=== PATIENT | male | born 1960 | race Caucasian/White ===

== ENCOUNTER 2025-01-30 10:55 | Outpatient (OUT) | payer MEDICARE, SELFPAY ==
[2025-01-30 11:32] LABS: Basophils Absolute Auto 0.1 10^3/uL (0.0-0.1); Basophils Percent Auto 1.1 % (0.2-2.0); Eosinophils Absolute Auto 0.2 10^3/uL (0.0-0.7); Hematocrit 48.5 % (42.0-54.0); Hemoglobin 15.8 g/dL (14.0-18.0); Immature Granulocytes Abs Auto 0.02 10^3/uL (0.00-0.03); Immature Granulocytes Pct Auto 0.3 % (0.0-0.5); Lymphocytes Absolute Auto 1.7 10^3/uL (1.2-3.8); Mean Corpuscular HGB Conc 32.6 g/dL (29.9-35.2); Mean Corpuscular Hemoglobin 28.5 pg (25.9-34.0); Mean Corpuscular Volume 87.4 fL (80.0-94.0); Mean Platelet Volume 10.2 fL (9.5-13.5); Monocytes Absolute Auto 0.6 10^3/uL (0.3-0.8); Monocytes Percent Auto 9.6 % (1.7-12.0); Neutrophils Absolute Auto 3.8 10^3/uL (1.4-6.5); Platelet Count 156 10^3/uL (150-450); Red Blood Count 5.55 10^6/uL (4.70-6.10); Red Cell Distribution Width 12.2 % (11.0-15.0); White Blood Count 6.4 10^3/uL (4.0-11.0)
[2025-01-30 12:15] LABS: Alanine Aminotransferase 44 U/L (16-63); Albumin Level 3.8 g/dL (3.4-5.0); Alkaline Phosphatase 146 U/L (46-116); Anion Gap 9.7; Aspartate Amino Transferase 16 U/L (15-37); BUN Creatinine Ratio 13.9; Bilirubin Total 0.5 mg/dL (0.2-1.0); Calcium 9.1 mg/dL (8.5-10.1); Carbon Dioxide 29.8 mmol/L (21.0-32.0); Chloride 99 mmol/L (98-107); Cholesterol 159 mg/dL (<=200); Estimated GFR (African America >60 (>=60 mL/min/1.73m^2); Estimated GFR (Non-African Ame >60 (>=60 mL/min/1.73m^2); Free T3 2.65 pg/mL (2.18-3.98); Globulin 3.9 g/dL; Glucose 319 mg/dL (74-106); HDL Cholesterol 40 mg/dL (40-60); Potassium 4.5 mmol/L (3.5-5.1); Sodium 134 mmol/L (136-145); Thyroid Stimulating Hormone 1.618 uIU/mL (0.358-3.740); Total Protein 7.7 g/dL (6.4-8.2); Triglycerides 480 mg/dL (<=150); Uric Acid 4.4 mg/dL (3.5-7.2)
[2025-01-30 12:16] LABS: Prostate Specific Antigen Scrn 0.26 ng/mL (<=4.00)
[2025-01-30 12:18] LABS: LDL Cholesterol Direct 69 mg/dL
[2025-01-30 12:30] LABS: Estimated Average Glucose 312 mg/dL; Glycohemoglobin A1C 12.5 % (4.5-6.2)
[2025-01-31 06:08] LABS: HCV Antibody Reactive (Non Reactive)
--- OUTSIDE RECORDS SUMMARY | 2025-02-01 18:14 | XMS_ITS ---
Author Organization The [facility] in [place] Address [address] [place] [address] Care Team Providers Care Social Worker Masters Name Role Phone Tony Thompson Primary Care Provider REASON FOR VISIT labs LMTCB Medications Medication SIG (Take, Route, Fr equency, Duration) Notes Start Date End Date Status metFORMIN HCl 500 MG 1 tablet with a matty l Orally bid for 30 days 02/02/2025 Active Encounters Encounter Location Date Provider Diagnosis [facility] [address] [place] [address] 02/01/2025 Tony Thompson Hepatitis C B19.20 Assessments [...] Provider Name:Tony Thompson, 09:45:00 AM, [address] [place], [address], Progress Notes * Curry TINSLEYDOB:1960 (64 yo M)Acc No.[id number]:02/01/2025 Patient: Hayde NANETTECurry :1960 A ge:64 Y S ex:Male Address:[address] [facility] [place] [address] * Refills Start metFORMIN HCl Tablet, 500 [...] Date: Generated for Eden stokes/Chalo/Casimiro on: 0 02/04/2025 02:04 AM EDT
--- OUTSIDE RECORDS SUMMARY | 2025-02-04 02:04 | XMS_ITS | Patient Health Record ---
Author Organization [facility] in [place] Address [address] [place] [address] Care Team Providers Care Cell Technician Name Role Phone JayTony Primary Care Provider Results Component Value Reference Range Notes DIRECT LDL Reviewed date:02/01/2025 10:17:22 PM Interpretation: Performing Lab: Notes/Report: [facility] , LDL Cholesterol Direct 69 <100 mg/dl OPTIMAL 100-129 mg/dl NEAR OR ABOVE OPTIMAL 130-159 mg/dl BORDERLINE HIGH 160-189 mg/dl HIGH >190 mg/dl VERY HIGH Performing Lab: see note ML - [facility] FREE T3 Reviewed date:02/01/2025 10:17:22 PM Interpretation: Performing Lab: Notes/Report: [facility] Free T3 2.65 2.18-3.98 pg/mL Performing Lab: see note ML - [facility] LB GLYCOHEMOGLOBIN A1C Reviewed date:02/01/2025 10:17:22 PM Interpretation: Performing Lab: Notes/Report: [facility] , Glycohemoglobin A1C 12.5 4.5-6.2 % ADA RECOMMENDED LIMIT 4.0 - 6.0 ADA THERAPEUTIC TARGET < 7.0 ACTION SUGGESTED > 7.0 Estimated Average Glucose 312 Performing Lab: see note ML - [facility] LB LIPID PROFILE Reviewed date:02/01/2025 10:17:22 PM Interpretation: Performing Lab: Notes/Report: [facility] , Triglycerides 480 <=150 mg/dL Cholesterol 159 <=200 mg/dL HDL Cholesterol 40 40-60 mg/dL > or =60 mg/dl - LOW CARDIOVASCULAR RISK <40 mg/dl - HIGH CARDIOVASCULAR RISK VLDL CHOLESTEROL 96.0 Chol HDL Ratio 4.0 3.3 - 4.4 LOW RISK 4.4 - 7.1 AVERAGE RISK 7.1 - 11.0 MODERATE RISK >11.0 HIGH RISK Performing Lab: see note [facility] LB PROF 14(COMP METB) Reviewed date:02/01/2025 10:17:22 PM Interpretation: Performing Lab: Notes/Report: [facility] , Sodium 134 136-145 mmol/L Potassium 4.5 3.5-5.1 mmol/L Chloride 99 98-107 mmol/L Carbon Dioxide 29.8 21.0-32.0 mmol/L Anion Gap 9.7 Glucose 319 74-106 mg/dL Blood Urea Nitrogen 14.0 7.0-18.0 mg/dL Creatinine 1.01 0.70-1.30 mg/dL Estimated GFR ( Ailyn >60 >=60 mL/min/1.73m 2 Estimated GFR (Non- Lori >60 >=60 mL/min/1.73m 2 BUN Creatinine Ratio 13.9 Calcium 9.1 8.5-10.1 mg/dL Bilirubin Total 0.5 0.2-1.0 mg/dL Aspartate Amino Transferase 16 15-37 U/L Alanine Aminotransferase 44 16-63 U/L Alkaline Phosphatase 146 46-116 U/L Total Protein 7.7 6.4-8.2 g/dL Albumin Level 3.8 3.4-5.0 g/dL Globulin 3.9 Albumin Globulin Ratio 1.0 Performing Lab: see note ML - [facility] LB PSA SCREENING Reviewed date:02/01/2025 10:17:22 PM Interpretation: Performing Lab: Notes/Report: [facility] , Prostate Specific Antigen Scrn 0.26 <=4.00 ng/mL Performing Lab: see note ML - [facility] LB T4 Reviewed date:02/01/2025 10:17:22 PM Interpretation: Performing Lab: Notes/Report: [facility] , T4 Thyroxine 8.30 4.50-12.10 ug/dL Performing Lab: see note - [facility] LB TSH Reviewed date:02/01/2025 10:17:22 PM Interpretation: Performing Lab: Notes/Report: [facility] , Thyroid Stimulating Hormone 1.618 0.358-3.740 u IU/mL Performing Lab: see note ML - [facility] LB URIC ACID SERUM Reviewed date:02/01/2025 10:17:22 PM Interpretation: Performing Lab: Notes/Report: [facility] , Uric Acid 4.4 3.5-7.2 mg/dL Performing Lab: see note ML - [facility] LB HCV Antibody Reviewed date:02/01/2025 10:17:22 PM Interpretation: Performing Lab: Notes/Report: [facility] , HCV Antibody Reactive Non Reactive HCV antibody alone does not differentiate between previously resolved infection and active infection. Equivocal and Reactive HCV antibody results should be followed up with an HCV RNA test to support the diagnosis of active HCV infection. Performed at: - [facility] [id number] National Sales Executive: Jason Gracia PhD, Phone: [phone] Performing Lab: see note - [facility] LB CBC AUTO DIFF Reviewed date:02/01/2025 10:17:22 PM Interpretation: Performing Lab: Notes/Report: [facility] , White Blood Count 6.4 4.0-11.0 10 3/uL Red Blood Count 5.55 4.70-6.10 10 6/uL Hemoglobin 15.8 14.0-18.0 g/dL Hematocrit 48.5 42.0-54.0 % Mean Corpuscular Volume 87.4 80.0-94.0 fL Mean Corpuscular Hemoglobin 28.5 25.9-34.0 pg Mean Corpuscular HGB Conc 32.6 29.9-35.2 g/dL Red Cell Distribution Width 12.2 11.0-15.0 % Platelet Count 156 150-450 10 3/uL Mean Platelet Volume 10.2 9.5-13.5 fL Neutrophils Percent Auto 59.0 43.0-75.0 % Lymphocytes Percent Auto 27.0 20.5-60.0 % Monocytes Percent Auto 9.6 1.7-12.0 % Eosinophils Percent Auto 3.0 0.9-7.0 % Basophils Percent Auto 1.1 0.2-2.0 % Immature Granulocytes Pct Auto 0.3 0.0-0.5 % Neutrophils Absolute Auto 3.8 1.4-6.5 10 3/uL Lymphocytes Absolute Auto 1.7 1.2-3.8 10 3/uL Monocytes Absolute Auto 0.6 0.3-0.8 10 3/uL Eosinophils Absolute Auto 0.2 0.0-0.7 10 3/uL Basophils Absolute Auto 0.1 0.0-0.1 10 3/uL Immature Granulocytes Abs Auto 0.02 0.00-0.03 10 3/uL Performing Lab: see note ML - [facility] LB Reason For Referral No Information Medications Medication SIG (Take, Route, Frequency, Duration) Notes Start Date End Date Status Triamcinolone Acetonide 0.1 % 1 application Externally bid 01/30/2025 Active metFORMIN HCl 500 MG 1 tablet with a matty l Orally bid for 30 days 02/02/2025 Active Social History Tobacco Use: Social History [...] W/U Status Risk Notes Problem Hepatitis C (38262825) Hepatitis C (B19.20) Active confirmed Problem Varicose vein (50032023) Varicose vein (I86.8) Active confirmed Problem Diverticular disease of colon (568039046) Diverticula of colon (K57.30) Active confirmed Problem Impotence (N52.9) Active confirmed Problem Type II diabetes mellitus without complication (535268153) Controlled type 2 diabetes mellitus (E11.9) Active confirmed Vital Signs Blood pressure diastolic 96 mm Hg 01/30/2025 Height 66 in 01/30/2025 Blood pressure systolic 164 mm Hg 01/30/2025 Weight 204.8 lbs 01/30/2025 BMI 33.05 kg/m2 01/30/2025 Encounters Encounter Location Date Provider Diagnosis [facility] [address] [place] [address] 01/30/2025 Tony Roniy Hepatitis C B19.20 ; Impotence N52.9 ; Controlled type 2 diabetes mellitus E11.9 and Smoker F17.200 [facility] [address] [place] [address] 02/01/2025 Tony Thompson Hepatitis C B19.20 Assessments Encounter Date Diagnosis (ICD Code) Assessment Notes Treatment Notes Treatment Clinical Notes Section Notes 01/30/2025 Hepatitis C (ICD-10 - B19.20) 01/30/2025 Impotence (ICD-10 - N52.9) 02/01/2025 Hepatitis C (ICD-10 - B19.20) 01/30/2025 Controlled type 2 diabetes mellitus (ICD-10 - E11.9) 01/30/2025 Smoker (ICD-10 - F17.200) Plan Of Treatment Pending Test Test Name Order Date HEMOGLOBIN A1C (GLYCO) 01/30/2025 LIPID PANEL (CHOL/TRIG/HDL/LDL) 01/31/20 URIC ACID 01/30/2025 STOOL OCCULT BLOOD 01/30/2025 HEP C RNA BY PCR QUANT (NON-GRAPHICAL) W 02/01/2025 HEPATITIS C ANTIBODY 01/30/2025 THYROID PANEL (T4/TSH/FREE T3) PSA, SCREENING 01/30/2025 CT CHEST LOW DOSE (LDCT) 01/30/2025 CMP (COMP MET SERRANO) w/eGFR CKD-EPI 2024 CBC WITH DIFF 01/30/2025 Next Appt Details Provider Name:Tony Thompson, 09:45:00 AM, [address] [place], [address], Insurance Providers Payer Name Payer Address Payer Phone Subscriber Number Group Number Insured Name Patient Relationship to Insured Coverage Start Date Coverage End Date [place] [address] [place] [address] [id number] Curry Tinsley Self - patient is the insured Medical (General) History Medical History History ICD Code Hepatitis C B19.20 Diverticula of colon K57.30 Impotence N52.9 Varicose vein I86.8 Shingles B02.9 Controlled type 2 diabetes mellitus E11. 9 Surgical History Surgery Date(Month/Year) colonoscopy 03/2014
== END 2025-01-30 10:56 | disposition home or self-care (01) ==
PROVIDERS: PCP Family Medicine; Visit Provider Family Medicine
DX: E78.5 Hyperlipidemia, unspecified (principal); B19.20 Unspecified viral hepatitis C without hepatic coma; N52.9 Male erectile dysfunction, unspecified; E11.9 Type 2 diabetes mellitus without complications; Z12.12 Encounter for screening for malignant neoplasm of rectum; Z12.5 Encounter for screening for malignant neoplasm of prostate
CPT/HCPCS: 80053; 80061; 83036; 83721; 84436; 84443; 84481; 84550; 85025; 86803; G0103

== ENCOUNTER 2025-02-04 10:26 | Outpatient (REF) | payer OTHER, SELFPAY ==
--- OUTSIDE RECORDS SUMMARY | 2025-01-30 06:00 | XMS_ITS ---
Author Organization The [facility] in [place] Address [address] [place] [address] Care Team Providers Care Tractor Operator Name Role Phone Tony Thompson Primary Care Provider REASON FOR VISIT Presents to office with daughter for yearly wellness exam, c/o dry skin to face, has history of hepC. Daughter concerned because of discoloration to skin and abd girth Medications Medication SIG (Take, Route, Frequency, Duration) Notes Start Date End Date Status Triamcinolone Acetonide 0.1 % 1 application Externally bid 01/30/2025 Active Social History Tobacco Use: Social History Observation Description Date Details (start date - stop date) Former Smoker 01/16/1972 - 01/15/2023 Tobacco Control (Standard) Question Answer Notes Tobacco use: Former smoker When did you start smoking? 01/16/1972 When did you stop smoking? 01/15/2023 AUDIT-C (Standard) Question Answer Notes Did you have a drink containing alcohol in the p ast year? No Points 0 Interpretation Negative Problems Problem Type SNOMED Code ICD Code Onset Dates Problem Status W/U Status Risk Notes Problem Hepatitis C (67119952) Hepatitis C (B19.20) Active confirmed Problem Diverticular disease of colon (884603262) Diverticula of colon (K57.30) Active confirmed Problem Impotence (N52.9) Active confirmed Problem Varicose vein (35142277) Varicose vein (I86.8) Active confirmed Problem Type II diabetes mellitus without complication (084256625) Controlled type 2 diabetes mellitus (E11.9) Active confirmed Vital Signs Blood pressure systolic 164 mm Hg 01/31/20 25 Blood pressure diastolic 96 mm Hg 025 Height 66 in 01/30/2025 Weight 204.8 lbs 01/30/2025 BMI 33.05 kg/m2 01/30/2025 Encounters Encounter Location Date Provider Diagnosis [facility] [address] [place] [address] 01/30/2025 Tony Thompson Hepatitis C B19.20 ; Impotence N52.9 ; Controlled type 2 diabetes mellitus E11.9 and Smoker F17.200 Assessments Encounter Date Diagnosis (ICD Code) Assessment Notes Treatment Notes Treatment Clinical Notes Section Notes 01/30/2025 Hepatitis C (ICD-10 - B19.20) 01/30/2025 Impotence (ICD-10 - N52.9) 01/30/2025 Controlled type 2 diabetes mellitus (ICD-10 - E11.9) 01/30/2025 Smoker (ICD-10 - F17.200) Plan Of Treatment Medication Medication Name Sig Start Date Stop Date Notes Triamcinolone Acetonide 0.1 % 1 application Externally bid 01/30/2025 Pending Test Test Name Order Date HEMOGLOBIN A1C (GLYCO) 01/30/2025 LIPID PANEL (CHOL/TRIG/HDL/LDL) 01/31/20 25 URIC ACID 01/30/2025 STOOL OCCULT BLOOD 01/30/2025 HEPATITIS C ANTIBODY 01/30/2025 THYROID PANEL (T4/TSH/FREE T3) 5 PSA, SCREENING 01/30/2025 CT CHEST LOW DOSE (LDCT) 01/30/2025 CMP (COMP MET SERRANO) w/eGFR CKD-EPI 2024 CBC WITH DIFF 01/30/2025 Next Appt Details Provider Name:Tony Thompson, 09:45:00 AM, [address] [place], [address], Progress Notes * Curry TINSLEYDOB:1960 (64 yo M)Acc No.[id number]:01/30/2025 Progress Note Patient: Hayde FITZPATRICK Curry Pichardo Provider: Basilio Thompson ([facility])MD :1960 A ge:64 Y S ex:Male Date:01/30/2025 Address:[address], [place], [id number] Check In:09:49 AM ESTCheck O ut:10:39 AM EST Subjective: * Chief Complaints: * P resents to office with daughter for yearly wellness examC/o dry skin to facehas history of hep C. Daughter concerned because of discoloration to skin and abd girth * HPI: D epression Screening: PHQ-9 L ittle interest or pleasure in doing things?More than half the days F eeling down, depressed, or hopeless S everal T rouble falling or staying asleep, or sleeping too much M ore than half the days F eeling tired or having little energy N early every day P oor appetite or overeating M ore than half the days F eeling bad about yourself or that you are a failure, or have let yourself or your family down N ot at all T rouble concentrating on things, such as reading the newspaper or watching television S ever M oving or speaking so slowly that other people could have noticed; or the opposite, being so fidgety or restless that you have been moving around a lot more than usual N ot at all T houghts that you would be better off or of hurting yourself in some way N ot at all T otal Score 1 1 I nterpretation M oderate Depression Umical hernoa - no symtpmsd weight alvarez been going up needs routine lasb. * ROS: E ENT: hearing changes d enies. v isual changes d enies.?non-healing mouth sores d enies. s wollen glands or neck lumps d enies. h oarseness d enies. s ore throat d enies. d ifficulty swallowing d enies. n ose bleeds d enies. n carlos congestion d enies. e ar ache d enies. e ar discharge?denies. r inging in ears d enies. l ight sensitivity d enies. e ye pain d enies. b lurring d enies. e ye irritation d enies. d ouble vision d enies.?vision loss d enies. G eneral/Constitutional: Sweats: D enies. F atigue d enies. S leep problems d enies. A norexia d enies. M alaise d enies. W eight loss d enies.?Fatigue or Weakness d enies. F ever or Chills d enies. C ardiovascular: Shortness of Breath w/lying flat d enies. L ightheadedness/dizziness d enies. C hest tightness/ heavy pressure d enies. S welling of legs, ankles, or feet d enies. W aking up with shortness of breath d enies. C hest pain denies. P alpitations d enies. W eight gain d enies. R espiratory: Chronic or frequent cough d enies. C oughing up blood?denies. D ifficulty breathing d enies. P roductive cough d enies. S noring?denies. S hortness of breath that awakens from sleep (PND) d enies. C hest pain d enies. S putum production d enies. W heezing d enies. M usculoskeletal: Joint pain d enies. J oint Fluid d enies. B ack pain d enies. K nee pain d enies. N la nena pain d enies. J oint Stiffness d enies. M uscle cramps d enies. W eakness of muscles d enies. A rthritis d enies. M uscle aches d enies. P ain in shoulder(s) d enies. S wollen joints d enies. * Active Problem List B19.20 Hepatitis C Modified On:01/30/2025U Status:confirmed I86.8 Varicose vein Modified On:01/30/2025U Status:confirmed K57.30 Diverticula of colon Modified On:01/30/2025U Status:confirmed N52.9 Impotence Modified On:01/30/2025U Status:confirmed E11.9 Controlled type 2 di abetes mellitus Modified On:01/30/2025U Status:confirmed * Medical History: * Surgical History: c olonoscopy 03/2014 * Hospitalization/Major Diagno stic Procedure: * Family History: F ather: . M other: . * Social History: T obacco Use: T obacco Control (Standard) T obacco use: F ormer smoker W hen did you start smoking? 0 01/16/1972 W hen did you stop smoking? 0 01/15/2023 D rug/Alcohol: A TYSON-C (Standard) D id you have a drink containing alcohol in the past year? N o P oints 0 I nterpretation N egative * Medications: D iscontinuedAmoxicillin-Pot Clavulanate 875-125 MG Tablet 1 tablet Orally every 12 hrs Medication List reviewed and reconciled with the patientDiscontinued Amoxicillin-Pot Clavulanate 875-125 MG Tablet 1 tablet Orally every 12 hrs Medication List reviewed and reconciled with the patient Objective: * Vitals: W t:204.8lbs, Ht: 66 in, BP:164/96mm Hg, BMI:33.05Index, Ht-cm: 167.64 cm, Wt-k.9 kg. * Examination: P hysical Exam: GENERAL: w ell developed, well nourished, in no acute distress. HEAD: n ormocephalic/atraumatic. EYES: p upils equal, round and reactive to light, conjunctivae and sclerae normal. EARS: n o deformity or lesion of external ear, canals and TM appear normal bilaterally, TM's intact, not inflamed with normal light reflex, hearing grossly normal to conversational speech. NOSE: n o deformity, discharge, inflammation, or lesions.? MOUTH: m ucous membranes moist, normal oropharynx and posterior pharynx without lesions or exudates, tongue normal, dentition normal. NECK: n la nena supple, no masses or palpable cervical nodes, trachea midline, thyroid without nodules, masses, tenderness, or enlargement. CHEST: n o chest wall deformity, no chest wall tenderness.? LUNGS: n ormal respiratory effort and clear to auscultation, no wheezes, rales, or rhonchi, good air exchange. CARDIO: r egular rate and rhythm, normal S1 and S2, nor murmur, rub, or gallop. PULSES: n ormal capillary refill. ABDOMEN: s oft, non-distended, non-tender, no masses. MUSCULOSKELETAL: n o deformity or scoliosis noted, normal range of motion, joints normal, no erythema, edema, effusion, or ecchymosis. EXTREMITY: n o clubbing, cyanosis, edema, or deformity with normal ROM in both upper and lower bilateral extremities. NEUROLOGIC: g rossly normal. SKIN: n o rashes, ulcerations, or suspicious lesions. LYMPH NODES: n o cervical adenopathy, nodes normal. MENTAL STATUS: a lert and oriented x3, normal mood and affect. Assessment: * Assessment: 1. H epatitis C - B19.20 (Primary) 2 . I mpotence - N52.9 3 . C ontrolled type 2 diabetes mellitus - E11.9 4 . S moker - F17.200 ? Plan: * Treatment: 2. I mpotence L AB: HEMOGLOBIN A1C (GLYCO) L AB: LIPID PANEL (CHOL/TRIG/HDL/LDL) L AB: URIC ACID L AB: STOOL OCCULT BLOOD L AB: THYROID PANEL (T4/TSH/FREE T3) L AB: PSA, SCREENING L AB: CMP (COMP MET SERRANO) w/eGFR CKD-EPI L AB: CBC WITH DIFF 3. C ontrolled type 2 diabetes mellitus L AB: HEMOGLOBIN A1C (GLYCO) L AB: LIPID PANEL (CHOL/TRIG/HDL/LDL) L AB: URIC ACID L AB: STOOL OCCULT BLOOD L AB: THYROID PANEL (T4/TSH/FREE T3) L AB: PSA, SCREENING L AB: CMP (COMP MET SERRANO) w/eGFR CKD-EPI L AB: CBC WITH DIFF 4. S moker I maging: CT CHEST LOW DOSE (LDCT) * Procedure Codes: * Preventive Medicine: Screenings/Counseling: B IA ACTION PLAN Above Normal BMI Follow-up D ietary management education, guidance, and counseling See treatment section of progress note for complete details of management plan. F ALL RISK SCREENING Fall Risk Assessment: N o falls in the past year * * Sign off status: Completed Visit Status: Akin HK (Check Out) true * Provider: Basilio Thompson ([facility])MD Date: 0 01/30/2025 Generated for Printi ng/Fayasmineg/eTransmitting on: 0 02/04/2025 10:32 AM EDT History and Physical Notes * HPI (History of Present Illness) Category Sub-Category Detail Notes Category Not es Depression Screening PHQ-9 Little inte rest or pleasure in doing things: More than half the days Umical hernoa - no symtpmsd weight alvarez been going up needs routine lasb Feeling down, depressed, or hopeless: Se veral days Trouble falling or staying a sleep, or sleeping too much: More than half the days Feeling tired or having little energy: N early every day Poor appetite or overeating: More than h intermediate the days Feeling bad about yourself o r that you are a failure, or have let yourself or your family down: Not at all Trouble concentrating on thi ngs, such as reading the newspaper or watching television: Several days Moving or speaking so slowly that other people could have noticed; or the opposite, being so fidgety or restless that you have been moving around a lot more than usual: Not at all Thoughts that you would be b catar[place] off or of hurting yourself in some way: Not at all Total Score: 11 Interpretation: Moderate Depression Examination Category Sub-Category Detail Notes Category Not es Physical Exam GENERAL: well developed, well nourished, in no acute distress HEAD: normocephalic/atraum atic EYES: pupils equal, round and reactive to light, conjunctivae and sclerae normal EARS: no deformity or lesi on of external ear, canals and TM appear normal bilaterally, TM's intact, not inflamed with normal light reflex, hearing grossly normal to conversational speech NOSE: no deformity, discha rge, inflammation, or lesions MOUTH: mucous membranes mariah st, normal oropharynx and posterior pharynx without lesions or exudates, tongue normal, dentition normal NECK: neck supple, no mass es or palpable cervical nodes, trachea midline, thyroid without nodules, masses, tenderness, or enlargement CHEST: no chest wall deform ity, no chest wall tenderness LUNGS: normal respiratory e ffort and clear to auscultation, no wheezes, rales, or rhonchi, good air exchange CARDIO: regular rate and rhy thm, normal S1 and S2, nor murmur, rub, or gallop PULSES: normal capillary ref ill ABDOMEN: soft, non-distended, non-tender, no masses RECTAL: MUSCULOSKELETAL: no deformity or scol iosis noted, normal range of motion, joints normal, no erythema, edema, effusion, or ecchymosis EXTREMITY: no clubbing, cyanosi s, edema, or deformity with normal ROM in both upper and lower bilateral extremities NEUROLOGIC: grossly normal SKIN: no rashes, ulceratio ns, or suspicious lesions LYMPH NODES: no cervical adenopat hy, nodes normal MENTAL STATUS: alert and oriented x 3, normal mood and affect
[2025-02-04 10:45] LABS: Internal Control Within Normal Limits; Occult Blood Negative
== END 2025-02-04 10:27 | disposition home or self-care (01) ==
LOC: LAB 10:26
PROVIDERS: PCP Family Medicine; Visit Provider Family Medicine
DX: E78.5 Hyperlipidemia, unspecified (principal); B19.20 Unspecified viral hepatitis C without hepatic coma; N52.9 Male erectile dysfunction, unspecified; E11.9 Type 2 diabetes mellitus without complications; Z12.12 Encounter for screening for malignant neoplasm of rectum; Z12.5 Encounter for screening for malignant neoplasm of prostate
CPT/HCPCS: G0328

== ENCOUNTER 2025-02-19 09:10 | Outpatient (OUT) | payer OTHER, SELFPAY ==
--- OUTSIDE RECORDS SUMMARY | 2025-02-01 18:14 | XMS_ITS ---
Author Organization [facility] in [place] Address [address] [place] [address] Care Team Providers Care Seed Pelleter Name Role Phone Tony Thopmson Primary Care Provider [phone] REASON FOR VISIT labs LMTCB Medications Medication SIG (Take, Route, Fr equency, Duration) Notes Start Date End Date Status metFORMIN HCl 500 MG 1 tablet with a matty l Orally bid for 30 days 02/02/2025 Active Encounters Encounter Location Date Provider Diagnosis [facility] [address] [place] [address] 02/01/2025 Tony Thompson Hepatitis C B19.20 Assessments Encounter Date Diagnosis (ICD Code) Assessment Notes Treatment Notes Treatment Clinical Notes Section Notes 02/01/2025 Hepatitis C (ICD-10 - B19.20) Plan Of Treatment Medication Medication Name Sig Start Date Stop Date Notes metFORMIN HCl 500 MG 1 tablet with a matty l Orally bid for 30 days 02/02/2025 Pending Test Test Name Order Date HEP C RNA BY PCR QUANT (NON-GRAPHICAL) W 02/01/2025 Next Appt Details Provider Name:Tony Thompson, 09:45:00 AM, [address] [place], [address], Progress Notes * Curry TINSLEYDOB:1960 (64 yo M)Acc No.[id number]:02/01/2025 Patient: Hayde NANETTECurry :1960 A ge:64 Y S ex:Male Address:[address] [place] [address] * Refills Start metFORMIN HCl Tablet, 500 MG, Orally, 60 Tablet, 1 tablet with a meal, bid, 30 days, Refills=11 Subjective: * Chief Complaints: * l abs LMTCB * Medical History: * Surgical History: * Hospitalization/Major Diagno stic Procedure: * Medications: Objective: * Vitals: * Physical Examination: Assessment: * Assessment: 1. H epatitis C - B19.20 (Primary) Plan: * Treatment: 2. O thers Start metFORMIN HCl Tablet, 500 MG, 1 tablet with a meal, Orally, bid, 30 days, 60 Tablet, Refills 11. * Procedure Codes: * true * Date: Generated for Eden stokes/Chalo/Casimiro on: 0 02/19/2025 09:20 AM EDT
--- OUTSIDE RECORDS SUMMARY | 2025-02-19 09:21 | XMS_ITS | Patient Health Record ---
Author Organization The [facility] in [place] Address [address] [place] [address] Care Team Providers Care Supervisor Winding Department Name Role Phone JayTony Primary Care Provider Results Component Value Reference Range Notes DIRECT LDL Reviewed date:02/01/2025 10:17:22 PM Interpretation: Performing Lab: Notes/Report: [facility] , LDL Cholesterol Direct 69 <100 mg/dl OPTIMAL 100-129 mg/dl NEAR OR ABOVE OPTIMAL 130-159 mg/dl BORDERLINE HIGH 160-189 mg/dl HIGH >190 mg/dl VERY HIGH Performing Lab: see note ML - [facility] FREE T3 Reviewed date:02/01/2025 10:17:22 PM Interpretation: Performing Lab: Notes/Report: [facility] , Free T3 2.65 2.18-3.98 pg/mL Performing Lab: see note ML - [facility] LB T4 Reviewed date:02/01/2025 10:17:22 PM Interpretation: Performing Lab: Notes/Report: [facility] , T4 Thyroxine 8.30 4.50-12.10 ug/dL Performing Lab: see note ML - [facility] LB TSH Reviewed date:02/01/2025 10:17:22 PM Interpretation: Performing Lab: Notes/Report: [facility] , Thyroid Stimulating Hormone 1.618 0.358-3.740 u IU/mL Performing Lab: see note ML - [facility] LB HCV Antibody Reviewed date:02/01/2025 10:17:22 PM Interpretation: Performing Lab: Notes/Report: [facility] , HCV Antibody Reactive Non Reactive HCV antibody alone does not differentiate between previously resolved infection and active infection. Equivocal and Reactive HCV antibody results should be followed up with an HCV RNA test to support the diagnosis of active HCV infection. Performed at: - [facility] [address] [id number] Insurance Underwriter: Jason Gracia PhD, Phone: [phone] Performing Lab: see note - [facility] LB Occult Blood* Reviewed date:02/04/2025 12:55:08 PM Interpretation: Performing Lab: Notes/Report: [facility] , Occult Blood Negative Performing Lab: see note ML - [facility] LB URIC ACID SERUM Reviewed date:02/01/2025 10:17:22 PM Interpretation: Performing Lab: Notes/Report: [facility] , Uric Acid 4.4 3.5-7.2 mg/dL Performing Lab: see note ML - [facility] LB PSA SCREENING Reviewed date:02/01/2025 10:17:22 PM Interpretation: Performing Lab: Notes/Report: [facility] , Prostate Specific Antigen Scrn 0.26 <=4.00 ng/mL Performing Lab: see note - [facility] LB PROF 14(COMP METB) Reviewed date:02/01/2025 10:17:22 PM Interpretation: Performing Lab: Notes/Report: [facility] , Sodium 134 136-145 mmol/L Potassium [...] 1.0 Performing Lab: see note ML - [facility] LB LIPID PROFILE Reviewed date:02/01/2025 10:17:22 PM Interpretation: Performing Lab: Notes/Report: [facility] , Triglycerides 480 <=150 mg/dL Cholesterol 159 <=200 mg/dL HDL Cholesterol 40 40-60 mg/dL > or =60 mg/dl - LOW CARDIOVASCULAR RISK <40 mg/dl - HIGH CARDIOVASCULAR RISK VLDL CHOLESTEROL 96.0 Chol HDL Ratio 4.0 3.3 - 4.4 LOW RISK 4.4 - 7.1 AVERAGE RISK 7.1 - 11.0 MODERATE RISK >11.0 HIGH RISK Performing Lab: see note ML - [facility] LB GLYCOHEMOGLOBIN A1C Reviewed date:02/01/2025 10:17:22 PM Interpretation: Performing Lab: Notes/Report: [facility] , Glycohemoglobin A1C 12.5 4.5-6.2 % ADA RECOMMENDED LIMIT 4.0 - 6.0 ADA THERAPEUTIC TARGET < 7.0 ACTION SUGGESTED > 7.0 Estimated Average Glucose 312 Performing Lab: see note ML - [facility] LB CBC AUTO DIFF Reviewed date:02/01/2025 10:17:22 PM Interpretation: Performing Lab: Notes/Report: [facility] , White Blood Count 6.4 4.0-11.0 [...] 3/uL Performing Lab: see note ML - [facility] LB Reason For Referral No Information [...] W/U Status Risk Notes Problem Hepatitis C (65349849) Hepatitis C (B19.20) Active confirmed Problem Varicose vein (18431931) Varicose vein (I86.8) Active confirmed Problem Diverticular disease of colon (768486989) Diverticula of colon (K57.30) Active confirmed Problem Impotence (N52.9) Active confirmed Problem Type II diabetes mellitus without complication (985577391) Controlled type 2 diabetes mellitus (E11.9) Active confirmed Vital Signs Blood pressure diastolic 96 mm Hg 01/30/2025 Height 66 in 01/30/2025 Blood pressure systolic 164 mm Hg 01/30/2025 Weight 204.8 lbs 01/30/2025 BMI 33.05 kg/m2 01/30/2025 Encounters Encounter Location Date Provider Diagnosis [facility] [address] [id number] 02/01/2025 Tony Thompson Hepatitis C B19.20 [facility] [address] [place] [address] 01/30/2025 Tony Thompson Hepatitis C B19.20 ; [...] Provider Name:Tony Thompson, 09:45:00 AM, [address] [place], [address], Insurance Providers Payer Name Payer Address Payer Phone Subscriber Number Group Number Insured Name Patient Relationship to Insured Coverage Start Date Coverage End Date MEDIC[place] [address] [place] [place] [address] [id number] Curry Tinsley Self - patient is the insured Medical (General) History Medical History History ICD Code Hepatitis C B19.20 Diverticula of colon K57.30 Impotence N52.9 Varicose vein I86.8 Shingles B02.9 Controlled type 2 diabetes mellitus E11. 9 Surgical History Surgery Date(Month/Year) colonoscopy 03/2014
--- NOTE | 2025-02-19 09:35 | CT_ITS ---
The [address] [address] Patient Name: SAVANNAH CAPPS MRN: [id number] date: 1960 Sex: M Assigned Patient Location: CT Current Patient Location: CT Accession/Order Number: [id number] Exam Date: 02/19/2025 10:34 Report Date: 02/19/2025 10:39 At the request of: MELINDA DAMON MD Procedure: CT lung screening low-dose LOW-DOSE SCREENING CHEST CT WITHOUT CONTRAST COMPARISON: None CLINICAL DATA: Former smoker for approximately 50 years. Spiral axial unenhanced low-dose images were obtained through the chest. Images were reviewed using both narrow and wide window settings. This CT exam was performed using one or more following dose reduction techniques: Automated exposure control, adjustment of the mA and/or kV according to patient size, or use of iterative reconstruction technique. The heart is top normal in size. There is no pericardial effusion. No aortic aneurysm is seen. There is mild atelectatic plaque at the aortic arch and proximal great vessels. There are a few small nonpathologic mediastinal lymph nodes. There is minor endplate spurring at the spine. There are airspace lucencies compatible with obstructive lung disease. There is minor basilar atelectasis and/or scarring. There is no additional consolidation, pleural effusion or pneumothorax. No pulmonary nodularity is noted. Limited imaging through the upper abdomen shows fatty infiltration of the liver. There are hepatic and splenic granulomas. CT/CT lung screening low-dose IMPRESSION: OBSTRUCTIVE LUNG DISEASE WITH MINOR ATELECTASIS AND/OR SCARRING. NO PULMONARY NODULARITY. Lung RADS category 1 - negative Twelve-month low-dose CT follow-up suggested Impression dictated by: Emily Owen M.D. 02/19/2025 10:39 AM Dictation Location: [place] [address] Electronically authenticated by: [id number] Y Date: 02/19/2025 10:39
== END 2025-02-19 09:11 | disposition home or self-care (01) ==
PROVIDERS: PCP Family Medicine; Visit Provider Family Medicine
DX: J44.9 Chronic obstructive pulmonary disease, unspecified (principal); F17.210 Nicotine dependence, cigarettes, uncomplicated
CPT/HCPCS: 71271

== ENCOUNTER 2025-08-10 07:25 | Outpatient (OUT) | payer OTHER, SELFPAY ==
--- OUTSIDE RECORDS SUMMARY | 2025-07-27 06:09 | XMS_ITS ---
Author Organization The [facility] in [place] Address [address] [place] [address] Care Team Providers Care Calciner Feeder Name Role Phone Jay Tony Primary Care Provider [phone] REASON FOR VISIT repeat labs? Encounters Encounter Location Date Provider Diagnosis [facility] [address] [place] [address] 07/27/2025 Tony Thompson Controlled type 2 diabetes mellitus E11.9 Assessments Encounter Date Diagnosis (ICD Code) Assessment Notes Treatment Notes Treatment Clinical Notes Section Notes 07/27/2025 Controlled type 2 diabetes gumaro chanel (ICD-10 - E11.9) Plan Of Treatment Pending Test Test Name Order Date TOTAL URINE, PROTEIN 07/27/2025 GLYCOHEMOGLOBIN A1C 07/27/2025 Progress Notes * Curry TINSLEYDOB:1960 (64 yo M)Acc No.[id number]:07/27/2025 Patient:?JEFRY, Curry Pichardo :1960???Age:64 Y???Sex:MalePhone:[phone] Address:[address] [place] [address], [address] Subjective: * Chief Complaints: * R epeat labs? * Medical History: * Surgical History: * Hospitalization/Major Diagno stic Procedure: * Medications: Objective: * Vitals: * Physical Examination: ??? Assessment: * Assessment: 1.?Controlled type 2 diabetes mellitus - E11.9 (Primary)??? Plan: * Treatment: ?LAB: TOTAL URINE, PROTEIN ?LAB: GLYCOHEMOGLOBIN A1C * Procedure Codes: * true * Date:?Generated for Printing/Faxing/eTransmitting on:?08/10/2025 07:29 AM EST
--- OUTSIDE RECORDS SUMMARY | 2025-08-10 07:29 | XMS_ITS | Patient Health Record ---
Author Organization The [facility] in [place] Address [address] [place] [address] Care Team Providers Care Solar Sales Representative Name Role Phone JayTony Primary Care Provider Allergies No Known Allergies Results Component Value Reference Range Notes Occult Blood* Reviewed date:02/04/2025 12:55:08 PM Interpretation: Performing Lab: Notes/Report: [facility] , Occult Blood Negative Performing Lab:see noteML - [facility] LBTSH Reviewed date:02/01/2025 10:17:22 PM Interpretation: Performing Lab: Notes/Report: [facility] ,Thyroid Stimulating Hormone1.6180.358-3.740 uIU/mLPerforming Lab:see note - [facility] LBT4 Reviewed date:02/01/2025 10:17:22 PM Interpretation: Performing Lab: Notes/Report: [facility] ,T4 Thyroxine8.304.50-12.10 ug/dLPerforming Lab:see note - [facility] LBGLYCOHEMOGLOBIN A1C Reviewed date:02/01/2025 10:17:22 PM Interpretation: Performing Lab: Notes/Report: [facility] ,Glycohemoglobin A1C12.54.5-6.2 % ADA RECOMMENDED LIMIT 4.0 - 6.0 ADA THERAPEUTIC TARGET < 7.0 ACTION SUGGESTED > 7.0 Estimated Average Yukowvl329Cokufroexs Lab:see noteML - [facility] LB FREE T3 Reviewed date:02/01/2025 10:17:22 PM Interpretation: Performing Lab: Notes/Report: [facility] ,Free T32.652.18-3.98 pg/mLPerforming Lab:see noteML - [facility] LB DIRECT LDL Reviewed date:02/01/2025 10:17:22 PM Interpretation: Performing Lab: Notes/Report: [facility] ,LDL Cholesterol Ouoonb74 <100 mg/dl OPTIMAL 100-129 mg/dl NEAR OR ABOVE OPTIMAL 130-159 mg/dl BORDERLINE HIGH 160-189 mg/dl HIGH >190 mg/dl VERY HIGH Performing Lab:see noteML - [facility] LBCBC AUTO DIFF Reviewed date:02/01/2025 10:17:22 PM Interpretation: Performing Lab: Notes/Report: [facility] ,White Blood Count6.44.0-11.0 10 3/uLRed Blood Count5.554.70-6.10 10 6/uL Mrkdqusomd32.814.0-18.0 g/jMVqgydgpfbh05.542.0-54.0 %Mean Corpuscular Jbjxpn44.4 80.0-94.0 fLMean Corpuscular Kzjnqcrysf75.525.9-34.0 pgMean Corpuscular HGB Conc 32.629.9-35.2 g/dLRed Cell Distribution Width12.211.0-15.0 %Platelet Hqsvx197 150-450 10 3/uLMean Platelet Dwbgur53.29.5-13.5 fLNeutrophils Percent Auto59.0 43.0-75.0 %Lymphocytes Percent Auto27.020.5-60.0 %Monocytes Percent Auto9.61.7- 12.0 %Eosinophils Percent Auto3.00.9-7.0 %Basophils Percent Auto1.10.2-2.0 % Immature Granulocytes Pct Auto0.30.0-0.5 %Neutrophils Absolute Auto3.81.4-6.5 10 3/uLLymphocytes Absolute Auto1.71.2-3.8 10 3/uLMonocytes Absolute Auto0.60.3-0.8 10 3/uLEosinophils Absolute Auto0.20.0-0.7 10 3/uLBasophils Absolute Auto0.10.0- 0.1 10 3/uLImmature Granulocytes Abs Auto0.020.00-0.03 10 3/uLPerforming Lab:see noteML - [facility] LBHCV Antibody Reviewed date:02/01/2025 10:17:22 PM Interpretation: Performing Lab: Notes/Report: [facility] ,HCV AntibodyReactiveNon Reactive HCV antibody alone does not differentiate between previously resolved infection and active infection. Equivocal and Reactive HCV antibody results should be followed up with an HCV RNA test to support the diagnosis of active HCV infection. Performed at: [address] [id number] Thread Trimmer: Jason Gracia PhD, Phone: [phone] Performing Lab:see noteLC - [facility] LBURIC ACID SERUM Reviewed date:02/01/2025 10:17:22 PM Interpretation: Performing Lab: Notes/Report: [facility] ,Uric Acid4.43.5-7.2 mg/dLPerforming Lab:see noteML - [facility] LB PSA SCREENING Reviewed date:02/01/2025 10:17:22 PM Interpretation: Performing Lab: Notes/Report: [facility] ,Prostate Specific Antigen Scrn0.26<=4.00 ng/mLPerforming Lab:see noteML - [facility] LBPROF 14(COMP METB) Reviewed date:02/01/2025 10:17:22 PM Interpretation: Performing Lab: Notes/Report: [facility] ,Bdkruh661613-924 mmol/LPotassium4.53.5-5.1 mmol/KMgohjekq6280-071 mmol/LCarbon Gwekvva93.821.0-32.0 mmol/LAnion Gap9.9Kwijiry95025-411 mg/dLBlood Urea Nitrogen 14.07.0-18.0 mg/dLCreatinine1.010.70-1.30 mg/dLEstimated GFR ( Ailyn>60 >=60 mL/min/1.73m 2Estimated GFR (Non- Lori>60>=60 mL/min/1.73m 2BUN Creatinine Ratio13.7Xhkixio8.18.5-10.1 mg/dLBilirubin Total0.50.2-1.0 mg/dL Aspartate Amino Ylihcycbopq1622-99 U/LAlanine Psrxmfahrvwjvvdd5480-03 U/L Alkaline Wfwaxbweqpc03921-311 U/LTotal Protein7.76.4-8.2 g/dLAlbumin Level3.8 3.4-5.0 g/dLGlobulin3.9Albumin Globulin Ratio1.0Performing Lab:see note - [facility] LBLIPID PROFILE Reviewed date:02/01/2025 10:17:22 PM Interpretation: Performing Lab: Notes/Report: [facility] ,Pbevpizmrvjsd715<=150 mg/zVChhgmdvrutb917<=200 mg/dLHDL Qbfibzlhxyq8717-56 mg/dL > or =60 mg/dl - LOW CARDIOVASCULAR RISK <40 mg/dl - HIGH CARDIOVASCULAR RISK VLDL VHBRJWCSAZZ11.0Chol HDL Ratio4.0 3.3 - 4.4 LOW RISK 4.4 - 7.1 AVERAGE RISK 7.1 - 11.0 MODERATE RISK >11.0 HIGH RISK Performing Lab:see [facility] LBCT lung screening low-dose Reviewed date:02/19/2025 08:15:52 PM Interpretation: Performing Lab: Notes/Report: Source Facility: [place] [address] CT Scan Report Signed Patient: CURRY TINSLEY MR#: [id number] : 1960 Acct:[id number] Age/Sex: 64 / M ADM Date: 02/19/25 Loc: CT Attending Dr: Rj Damon M.D. Ordering Physician: Rj Damon M.D. Date of Service: 02/19/25 Procedure(s): CT lung screening low-dose Accession Number(s): [id number] cc: Rj Damon M.D. [place] [id number] Patient Name: CURRY TINSLEY MRN: [id number] date: 1960 Sex: M Assigned Patient Location: CT Current Patient Location: CT Accession/Order Number: [id number] Exam Date: 02/19/2025 10:34 Report Date: 02/19/2025 10:39 At the request of: RJ DAMON MD Procedure: CT lung screening low-dose LOW-DOSE SCREENING CHEST CT WITHOUT CONTRAST COMPARISON: None CLINICAL DATA: Former smoker for approximately 50 years. Spiral axial unenhanced low-dose images were obtained through the chest. Images were reviewed using both narrow and wide window settings. This CT exam was performed using one or more following dose reduction techniques: Automated exposure control, adjustment of the mA and/or kV according to patient size, or use of iterative reconstruction technique. The heart is top normal in size. There is no pericardial effusion. No aortic aneurysm is seen. There is mild atelectatic plaque at the aortic arch and proximal great vessels. There are a few small nonpathologic mediastinal lymph nodes. There is minor endplate spurring at the spine. There are airspace lucencies compatible with obstructive lung disease. There is minor basilar atelectasis and/or scarring. There is no additional consolidation, pleural effusion or pneumothorax. No pulmonary nodularity is noted. Limited imaging through the upper abdomen shows fatty infiltration of the liver. There are hepatic and splenic granulomas. CT/CT lung screening low-dose IMPRESSION: OBSTRUCTIVE LUNG DISEASE WITH MINOR ATELECTASIS AND/OR SCARRING. NO PULMONARY NODULARITY. Lung RADS category 1 - negative Twelve-month low-dose CT follow-up suggested Impression dictated by: Emily Owen M.D. 02/19/2025 10:39 AM Dictation Location: [place] [address] Electronically authenticated by: [id number] Y Date: 02/19/2025 10:39 Dictated By: Emily Owen M.D. Signed By: 02/19/25 1042 DD/ 1039 TD/TT: Quality Control Lab Tech: Reason For Referral No Information Medications Medication SIG (Take, Route, Frequency, Duration) Notes Start Date End Date Status Triamcinolone Acetonide 0.1 % 1 application Exte rnally bid 5ActivePioglitazone HCl 15 MG1 tablet Orally Once a day; Duration: 30 days03/16/2025Not-TakingLasix 40 MG1 tablet Orally Once a day; Duration: 3 days 5ActiveJardiance 10 MG1 tablet Orally Once a day; Duration: 30 days 5ActiveGlimepiride 4 MG1 tablet with breakfast or the first main meal of the day Orally twice a day; Duration: 30 days5ActiveAmoxicillin-Pot Clavulanate 875-125 MG1 tablet Orally every 12 hrs; Duration: 10 days07/20/2025 Active Social History Tobacco Use: Social History Observation Description Date Details (start date - stop date) Former Smoker 01/16/1972 - 01/15/2023 Tobacco Control (Standard) Question Answer Notes Tobacco use: Former smoker When did you start smoking?01/16/1972When did you stop smoking?01/15/2023UDIT-C (Standard) Question Answer Notes Did you have a drink containing alcohol in the p ast year? No Bswuyt0YjdcneqzmrggvxNnydwoar Problems Problem Type SNOMED Code ICD Code Onset Dates Problem Status W/U Status Risk Notes Problem Hepatitis C (72290787) Hepatitis C (B19.2 0) ActiveconfirmedProblemVaricose vein (00175923)Varicose vein (I86.8)Active confirmedProblemDiverticular disease of colon (987683776)Diverticula of colon (K57.30)ActiveconfirmedProblemErectile dysfunction (disorder) (243185844) Impotence (N52.9)ActiveconfirmedProblemType II diabetes mellitus without complication (401490522)Controlled type 2 diabetes mellitus (E11.9)Active confirmed Vital Signs Blood pressure diastolic 80 mm Hg 07/20/2025 Sjatwl00 in07/20/2025lood pressure uodnktul586 mm Hg07/20/20255766Nzunnp344 lbs 07/20/2025BMI34.7 kg/m207/20/2025 Encounters Encounter Location Date Provider Diagnosis [facility] [address] [place] [address] 02/01/2025 Tony Damon Hepatitis C B19.20 [facility] [address] [place] [address] 02/19/2025 Tony Damon [facility] [place] [address] 02/19/2025[facility] [place] [address]/29/2025[facility] [place] [address]/[place] [facility] [facility] [place] [address]/06/2025Doug HoyControlled type 2 diabetes mellitus E11.9[place] [place] [facility] [place] [place] [address]/Doug HoyHepatitis C B19.20 ; Impotence N52.9 ; Controlled type 2 diabetes mellitus E11.9 and Smoker F17.200[place] [address] [place] [facility] [place] [place] [address]/11/2024Doug Hoy Acute non-recurrent sinusitis, unspecified location J01.90 and Nasal congestion R09.81 Assessments Encounter Date Diagnosis (ICD Code) Assessment Notes Treatment Notes Treatment Clinical Notes Section Notes 01/30/2025 Hepatitis C (ICD-10 - B19.20) 01/30/2025Impotence (ICD-10 - N52.9)5Acute non-recurrent sinusitis, unspecified location (ICD-10 - J01.90) Rest and drink more liquids, especially water. You may use a humidifier or vaporizer to help keep the drainage moist. Lbrc-cvd-guybyos Nasal Saline may help the stuffy and runny nose. Use Ibuprofen and or Tylenol as needed for fever, chills, body aches or pain. Children 5 years old should not be given rqys-vjm-harnpik cough and cold medications such as guaifenesin and dextromethorphan. If you're over age 5, you may try asdf-swo-wsogvst cold medications such as guaifenesin and dextromethorphan, or multi-symptom cold reliever such as Dayquil to help reduce the symptoms. Antibiotics have been pre scribed. You should take these until completed and follow the directions. Antibiotics can sometimescause upset stomach, and in rare cases, serious allergic reactions or serious gastrointestinal problems. If you start having severe abdominal pain, severe vomiting, or bloody diarrhea, you should be r eevaluated by your physician or urgent care immediately. Follow up with your Primary Care Provider or return to clinic if symptoms do not improve within 3-5 days 02/01/2025Hepatitis C (ICD-10 - B19.20)07/27/2025ontrolled type 2 diabetes mellitus (ICD-10 - E11.9)07/20/2025Nasal congestion (ICD-10 - R09.81)01/30/2025 Controlled type 2 diabetes mellitus (ICD-10 - E11.9)01/30/2025Smoker (ICD-10 - F17.200) Plan Of Treatment Pending Test Test Name Order Date HEMOGLOBIN A1C (GLYCO) 01/30/2025 LIPID PANEL (CHOL/TRIG/HDL/LDL) 01/31/20 25 URIC ACID 01/30/2025 TOTAL URINE, PROTEIN 07/27/2025 STOOL OCCULT BLOOD 01/30/2025 GLYCOHEMOGLOBIN A1C 07/27/2025 HEP C RNA BY PCR QUANT (NON-GRAPHICAL) W 02/01/2025 HEPATITIS C ANTIBODY 01/30/2025 THYROID PANEL (T4/TSH/FREE T3) PSA, SCREENING 01/30/2025 CT CHEST LOW DOSE (LDCT) 01/30/2025 CMP (COMP MET SERRANO) w/eGFR CKD-EPI 2024 CBC WITH DIFF 01/30/2025 Insurance Providers Payer Name Payer Address Payer Phone Subscriber Number Group Number Insured Name Patient Relationship to Insured Coverage Start Date Coverage End Date [employer] [address] JORDAN SHAH [phone] [id number] Wilfrido Tinsley - patient is the insured Medical (General) History Medical History History ICD Code Hepatitis C B19.20 Diverticula of colon K57.30 Impotence N52.9 Varicose vein I86.8 Shingles B02.9 Controlled type 2 diabetes mellitus E11. 9 Surgical History Surgery Date(Month/Year) colonoscopy 03/2014
--- OUTSIDE RECORDS SUMMARY | 2025-08-10 07:29 | XMS_ITS | Clinical Summary ---
Author Organization [facility] Address [address] [place] [address] Care Team Providers Care Food Service Hotel Runner Name Role Phone Rj Thompson MD Primary Care Provider [phone] Source Comments The following information is NOT included in Care Everywhere downloads:Psychiatric notes, ECG results, Cardiac Rehab notes, Pulmonary Function notes, data from SmartForms (includes but not limited toPregnancy data,audiograms, eye exams, pre-surgical evaluation notes, well-child exam data).[facility] Allergies Active AllergyReactionsCriticalityNoted KmagLimlrmnuQybkqbhBewvbKzul16/06/2009 Active Problems ProblemNoted DateDiagnosed DateAbnormal liver function test01/22/2009lcohol abuse01/22/2009Hepatitis C001/20/2009 Social History Tobacco UseTypesPacks/DayYears UsedDateSmoking Tobacco: Never AssessedSex and Gender InformationValueDate RecordedSex Assigned at BirthNot on fileLegal Sex Male07/21/2012 12:47 PM ESTGender IdentityNot on fileSexual OrientationNot on file Last Filed Vital Signs Vital SignReadingTime TakenCommentsBlood Olohendu682/7805 1:31 PM EDT Qwbqr218801/20/2009 1:31 PM EMCNoeszedrjth78.5 ??C (97.7 ??F)01/20/2009 1:31 PM EDTRespiratory Rate--Oxygen Saturation--Inhaled Oxygen Concentration--Twpqgh97.3 kg (170 lb 6.4 oz)01/20/2009 1:31 PM EDTHeight--Body Mass Index-- Plan of Treatment Health MaintenanceDue DateLast VicqLjvuufxdGgjbqziumez00/16/1959Hepatitis C Wcqbrxcc15/16/1977Tdap Huwxmni4710/02/1976Hepatitis A (HAV) Vaccine (optional start 19+ years)1977Tetanus (Td or Tdap) Ohintbw2710/02/1977Cholesterol 1993CRC Feromwsit17/16/2004Cologuard (Stool DNA)2003FIT2003 Pneumococcal Vaccine(s) (50+ yrs) (1 of 1 - PCV)2008Shingles (RZV) Vaccine (1 of 2)2008Hepatitis B (HBV) Vaccine (optional start 60+ years)2018 COVID-19 Vaccine (1 - 2024-26 season)2025Influenza Vaccine (#1)2025 RSV vaccine (adult) (1 - 1-dose 75+ series)2033 Insurance Care Teams Team MemberRelationshipSpecialtyStart DateEnd Rj Thompson MD [address] [place] [address] [facility]12/21/08
[2025-08-10 09:02] LABS: Total Protein Urine Random <6.0 mg/dL (<=11.9)
== END 2025-08-10 07:26 | disposition home or self-care (01) ==
LOC: LAB 07:27
PROVIDERS: PCP Family Medicine; Visit Provider Family Medicine
DX: E11.9 Type 2 diabetes mellitus without complications (principal)
CPT/HCPCS: 36415; 83036; 84156